=== PATIENT | male | born 1935 | race Caucasian/White ===

== ENCOUNTER 2019-08-05 12:14 | Inpatient (IN) | payer OTHER ==
[~2019-08-05] VITALS: Ht 185.4 cm; Wt 77.1 kg
[2019-08-05 12:15] VITALS: BP 126/65
[2019-08-05 12:43] LABS: HEMATOCRIT 35.5 % (42.0-52.0); HEMOGLOBIN 11.1 gm/dL (14.0-18.0); MCH 28.7 pg (26.0-34.0); MCHC 31.2 g/dL (28.0-37.0); MPV 6.6 fl. (7.2-11.1); NUCLEATED RBCS 0 /100WBC; PLATELET COUNT* 400 thou/uL (150-400); RBC 3.86 mil/uL (4.50-6.00); RDW-CV 16.1 % (10.5-14.5); WBC 25.1 thou/uL (4.0-11.0)
[2019-08-05 12:49] LABS: APTT 24.1 Seconds (25.0-31.3); CALCIUM 7.7 mg/dL (8.5-10.1); CREATININE 1.7 mg/dL (0.6-1.3); INR 1.3; PROTIME 12.8 Seconds (9.20-11.50)
[2019-08-05 12:55] LABS: PCO2 34.6 mmHg (35.0-45.0); pH 7.353 (7.340-7.450)
[2019-08-05 13:00] LABS: ALBUMIN 2.9 g/dL (3.4-5.0); MAGNESIUM 1.8 mg/dL (1.8-2.4); POTASSIUM 4.5 mmol/L (3.5-5.1); TOTAL BILIRUBIN 0.9 mg/dL (<0.1-1.0); TOTAL PROTEIN 7.7 g/dL (6.4-8.2)
[2019-08-05 13:11] LABS: ABSOLUTE MONOCYTES 1.5 thou/uL (0.0-1.2); ABSOLUTE NEUTROPHILS 19.6 thou/uL (1.6-8.1); PLATELET ESTIMATE ADEQUATE
[2019-08-05] MEDS ORDERED: ESBRIET801 MG PO (13:35)
[2019-08-05] MEDS ORDERED: METFORMIN HCL500 M3 PO (13:35)
[2019-08-05] MEDS ORDERED: ALLEGRA ALLERG180 MG PO (13:36)
[2019-08-05] MEDS ORDERED: VENTOLIN HFA INH8 GM INH (13:36)
[2019-08-05] MEDS ORDERED: PRAVACHOL 20 MG20 M1 PO (13:36)
[2019-08-05] MEDS ORDERED: CALTRATE PLUS1 EACH PO (13:37)
[2019-08-05] MEDS ORDERED: ESSENTIAL DAIL1 EACH PO (13:37)
[2019-08-05] MEDS ORDERED: TOPROL XL25 MG PO (13:37)
[2019-08-05] MEDS ORDERED: COZAAR 25 MG TA25 M1 PO (13:37)
[2019-08-05 14:39] VITALS: BP 157/86
[2019-08-05 20:00] VITALS: BP 172/106
[2019-08-06] VITALS: BP 170/110
[2019-08-06 02:10] LABS: HEPATITIS B SURFACE AG Negative (Negative)
[2019-08-06 04:00] VITALS: BP 168/104
[2019-08-06 05:28] LABS: HEMATOCRIT 30.2 % (42.0-52.0); HEMOGLOBIN 9.9 gm/dL (14.0-18.0); MCHC 32.6 g/dL (28.0-37.0); MCV 89.1 fL (80.0-100.0); MPV 6.4 fl. (7.2-11.1); RBC 3.4 mil/uL (4.50-6.00); RDW-CV 15.2 % (10.5-14.5); WBC 19.4 thou/uL (4.0-11.0)
[2019-08-06 05:46] LABS: ALBUMIN 2.6 g/dL (3.4-5.0); CALCIUM 6.9 mg/dL (8.5-10.1); CREATININE 1.3 mg/dL (0.6-1.3); MAGNESIUM 1.8 mg/dL (1.8-2.4); POTASSIUM 4.6 mmol/L (3.5-5.1); TOTAL BILIRUBIN 0.3 mg/dL (<0.1-1.0); TOTAL PROTEIN 6.7 g/dL (6.4-8.2)
--- NOTE | 2019-08-06 07:33 | NUR ---
ASSUMED PATIENT CARE AT 1900. ASSESSMENT COMPLETED CHARTED. PATIENT HAD INCREASED BP DURING THE SHIFT. DOCTOR MANPREET NOTIFIED, NO NEW ORDERS RECEIVED. O2 INCREASED TO 10L HFNC. HOURLY ROUNDING IN PLACE FOR PATIENT SAFETY. CLWR.
--- NOTE | 2019-08-06 11:40 | EKG ---
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: JUDI : 1935 Requested By: Jose E Danielle Order Number: [id number] MD: Dave Campbell Measurements Intervals [place] Rate: 99 P: 81 WV: 152 QRS: -52 QRSD: 98 T: 72 QT: 353 QTc: 453 Interpretive Statements Sinus rhythm Left anterior fascicular block Abnormal R-wave progression, late transition Minimal ST depression, lateral leads Compared to ECG 05/07/2008 07:58:10 no change Electronically Signed On 08-06-2019 11:40:51 WOOL [employer]OWER by Dave Campbell [email or web address] <ELECTRONICALLY SIGNED> By: Dave Campbell MD, FACC 08/06/19 1140 1228 1228 Dave Campbell MD, [facility] /EPI
--- NOTE | 2019-08-06 13:16 | EKG ---
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 : 1935 Requested By: Rodriguez Kwong Order Number: [id number] MD: Dave Campbell Measurements Intervals [place] Rate: 85 P: 15 MA: 155 QRS: -47 QRSD: 101 T: -17 QT: 400 QTc: 476 Interpretive Statements Sinus rhythm Left anterior fascicular block Abnormal R-wave progression, early transition Left ventricular hypertrophy Borderline T abnormalities, inferior leads Borderline prolonged QT interval Compared to ECG 08/05/2019 12:28:40 Left ventricular hypertrophy now present T-wave abnormality now present Electronically Signed On 08-06-2019 13:16:33 SPECIALTY SALES CONSULTANT by Dave Campbell [email or web address] <ELECTRONICALLY SIGNED> By: Dave Campbell MD, FACC 08/06/19 1316 Dave Campbell MD, FACC /EPI
--- NOTE | 2019-08-06 15:20 | NUR ---
Pt was out of the room at [facility] u/s, spoke with REGINA in room. Pt resides at home with his . Uses a cane PRN. Wears home o2 continues, REGINA unsure of what DME company. No hx of HH or SNF. CM to f/u with Pt later
[2019-08-06 17:42] VITALS: BP 178/105
[2019-08-06 20:00] VITALS: BP 166/104
[2019-08-07] VITALS: BP 175/109
[2019-08-07 00:55] LABS: URINE BILIRUBIN NEGATIVE (Negative); URINE BLOOD 1+ (Negative); URINE CLARITY CLEAR; URINE COLOR YELLOW; URINE GLUCOSE-RANDOM 1+ (Negative); URINE KETONES NEGATIVE (Negative); URINE LEUKOCYTES-REFLEX NEGATIVE (Negative); URINE NITRITE-REFLEX NEGATIVE (Negative); URINE PROTEIN 1+ (Negative); URINE SPECIFIC GRAVITY 1.025 (1.005-1.030); URINE UROBILINOGEN 0.2 E.U./dl (0.2-1.0)
[2019-08-07 02:06] LABS: HYALINE CASTS 0-3 Few /LPF (None Seen); SQUAMOUS 0-3 Few /LPF (0-3)
[2019-08-07 02:07] LABS: BACTERIA-REFLEX None Seen /HPF (None Seen); CRYSTALS None Seen /LPF (None Seen); URINE RBC 3-10 Few /HPF (0-2); URINE WBC-REFLEX 0-5 Rare /HPF (0-5)
[2019-08-07 05:02] LABS: HEMATOCRIT 31.4 % (42.0-52.0); HEMOGLOBIN 10.3 gm/dL (14.0-18.0); MCH 29.1 pg (26.0-34.0); MCHC 32.8 g/dL (28.0-37.0); MCV 88.9 fL (80.0-100.0); MPV 6.8 fl. (7.2-11.1); RBC 3.53 mil/uL (4.50-6.00); RDW-CV 15.4 % (10.5-14.5); WBC 27.5 thou/uL (4.0-11.0)
[2019-08-07 05:12] LABS: ALBUMIN 2.7 g/dL (3.4-5.0); CALCIUM 7.8 mg/dL (8.5-10.1); CREATININE 1.4 mg/dL (0.6-1.3); TOTAL BILIRUBIN 0.3 mg/dL (<0.1-1.0); TOTAL PROTEIN 6.9 g/dL (6.4-8.2)
--- NOTE | 2019-08-07 07:45 | NUR ---
ASSUMED PATIENT CARE AT 1900. ASSESSMENT COMPLETED CHARTED. PATIENT IS MED-SURG. HOURLY ROUNDING IN PLACE FOR PATIENT SAFETY. CLWR.
[2019-08-07 08:00] VITALS: BP 181/110
--- NOTE | 2019-08-07 11:34 | NUR ---
CONTINUE TO FOLLOW, MET WITH PT. STATES HE IS NORMALLY ON 4L OF O2 AT HOME THRU [facility]. USES INHALER, DOESN'T HAVE A NEBULIZER. PT HASN'T HAD HH IN PAST. PLANS TO RETURN HOME AT [place]. WILL FOLLOW
[2019-08-07 11:36] LABS: INFLUENZA A ANTIGEN Negative (Negative); INFLUENZA B ANTIGEN Negative (Negative)
[2019-08-07 11:47] VITALS: BP 156/97
--- NOTE | 2019-08-07 12:57 | NUR ---
Nutrition: Pt seen for pressure ulcer screening risk. Pt stated he does not have an ulcer or wound. He is thin. Wt: 153# at admit. He is familiar with CHO controlled diet. H/o DM, HTN. BG 152, alb 2.7, prealb 14.9. Takes MVI. Admitted with resp failure. On solumedrol, MVI. No other nutrition interventions at this time. Discussed hospital menu and CHO choices. Mild risk.
--- NOTE | 2019-08-07 16:42 | NUR ---
NIKITA RESTING IN BED. 11 LITERS PER HIGH FLOW NASAL CANULA. PULMONARY HAS INFORMED RT THAT THE USE OF HIGH FLOW HEATED NASAL CANULA IS ACCEPTABLE IF NEEDED. VSS AND NEW MEDICATION HAAVE BEEN INITIATED TO REDUCE THE INCIDENCE OF HTN. HOURLY ROUNDING COMPLETED FOR PATIENT SAFETY.
[2019-08-07 20:00] VITALS: BP 147/86
[2019-08-08 04:00] VITALS: BP 160/96
[2019-08-08 05:14] LABS: HEMATOCRIT 30.2 % (42.0-52.0); MCH 29.2 pg (26.0-34.0); MCV 88.5 fL (80.0-100.0); MPV 6.5 fl. (7.2-11.1); RBC 3.41 mil/uL (4.50-6.00); WBC 24.1 thou/uL (4.0-11.0)
[2019-08-08 05:28] LABS: CALCIUM 7.9 mg/dL (8.5-10.1); CREATININE 1.2 mg/dL (0.6-1.3); MAGNESIUM 1.9 mg/dL (1.8-2.4); POTASSIUM 4.7 mmol/L (3.5-5.1)
[2019-08-08 07:45] VITALS: BP 159/95
--- NOTE | 2019-08-08 07:49 | CON ---
[address] [address] CONSULTATION Name: JUANJOFAUSTO W Room: [address] IN .R.#: [id number] Admission: 08/05/19 Attend Phys: Rodriguez Kwong MD Discharge: Date of : 39 Report #: [id number] THIS REPORT FOR: //name// CC: Rodriguez Kwong MD [facility] DATE OF SERVICE: 08/06/2019 PULMONARY CONSULTATION REFERRING PHYSICIAN REQUESTING CONSULTATION: Rodriguez Kwong MD. REASON FOR CONSULTATION: 1. Acute on chronic hypoxic respiratory failure. 2. Acute exacerbation of interstitial lung disease. 3. Sepsis/pneumonia. HISTORY OF PRESENT ILLNESS: The patient is an 83-year-old gentleman with past medical history that is positive for an idiopathic pulmonary fibrosis who follows with [facility], Dr. Alex Singleton. He has been maintained on 4 liters of oxygen during 04/04. He was also on Pirfenidone since 2011. The patient reported that he was treated for what appeared to be urinary tract infection with fever and dysuria approximately 2 weeks ago. He was given a course of nitrofurantoin, but he feels worse after taking it for 2 days. He called his pulmonary clinic and he was advised to take ciprofloxacin, which he started, but again feels worse, so he stopped it. The patient reported history of fatigue and dysuria at that time. Dysuria has resolved. However, over the last 3 days, the patient reported that his cough became more productive yellow sputum. The patient reported history of progressive dyspnea. The patient reported also that he had an increased oxygen requirement at home. No documented fevers or chills prior to admission over the last 2 days. In the Emergency Department, the patient was found to have leukocytosis along with lactic acidosis and acute on chronic hypoxic respiratory failure. The patient was admitted and was started on oxygen. He is currently on ____ liters of nasal cannula oxygen. The patient denies any pleuritic chest pain. The patient is lifetime nonsmoker and he has no history of COPD [place] [address] CONSULTATION Name: FAUSTO GEIGER Room: [address] IN [facility]#: [id number] Admission: 08/05/19 Attend Phys: Rodriguez Kwong MD Discharge: Date of : 37 Report #: [id number] He also takes albuterol as needed at home, which he rarely needs it, but over the last 3 days, he required more frequent dosing. The patient reported that he typically gets approximately twice episodes of bronchitis/upper respiratory tract infection per year. These are usually responsive to doxycycline and azithromycin. REVIEW OF SYSTEMS: Positive as described above for dyspnea, productive cough, intermittent wheezing and chest tightness. Remaining ten point review of system was otherwise unremarkable. PAST MEDICAL HISTORY: 1. Positive for elevated pulmonary fibrosis. 2. Chronic hypoxic respiratory failure. 3. Diabetes mellitus. PAST SURGICAL HISTORY: History of arthroplasty. FAMILY HISTORY: Negative for coronary artery disease or lung disorder. SOCIAL HISTORY: The patient is a lifetime nonsmoker. He denies alcohol or illicit drug use. He is retired. PHYSICAL EXAMINATION: The patient had the following: VITAL SIGNS: Temperature 37.1, heart rate 87, respiratory rate 20, blood pressure 168/104, saturation 94% on ____ liters nasal cannula oxygen. GENERAL: Showed an elderly gentleman who is mildly tachypneic. HEENT: Examination showed atraumatic. Neck supple. Pupils are round and reactive to light and accommodation. No JVD, thyromegaly or cervical lymphadenopathy. No carotid bruit. CARDIOVASCULAR: Regular rate and rhythm, normal S1, S2, no murmur. CHEST: Showed tight air entry bilaterally with bibasilar crackles and a few end expiratory rhonchi basally. ABDOMEN: Soft, lax, nontender. Normal bowel sounds. EXTREMITIES: Lower limb examination showed no clubbing, cyanosis or edema. CENTRAL NERVOUS SYSTEM: The patient was conscious, oriented x 3 with no focal neurological deficit. Normal speech. LABORATORY DATA: As follows: CBC showed WBC count of 19.4, hemoglobin of 9.9 and platelets of 286. His ABG on admission showed pH of 7.35, pCO2 of 34.6, pO2 of 78. Bicarbonate of 18.9 on 2 liters nasal cannula oxygen. Sodium was 133, potassium 4.5, chloride of 98.8, bicarbonate 18, anion gap of 24 of 17, BUN of 20, blood, creatinine of 1.7. Lactic acid was 9.3. Alkaline phosphatase was 158 and creatinine kinase was 119. INR was 1.4. Lipase was 96. Albumin was 2.9 and protein was 7.7. BNP was [address]130. [address] [address] CONSULTATION Name: FAUSTO GEIGER Room: [address] IN ..#: [id number] Admission: 08/05/19 Attend Phys: Rodriguez Kwong MD Discharge: Date of : 37 Report #: [id number] Chest x-ray showed significant interval increase in the diffuse interstitial opacities in the mid and right lower lung prominence and mostly in the right side. In acute setting, this may represent interstitial edema or atypical infection. Chronic interstitial disease/fibrosis could give a similar appearance. ASSESSMENT: 1. Acute on chronic hypoxic respiratory failure. 2. Healthcare-associated pneumonia. 3. Severe sepsis. 4. Interstitial lung disease with possible exacerbation. 5. Lactic acidosis. 6. Diabetes mellitus. PLAN: The patient appeared to have acute exacerbation of idiopathic pulmonary fibrosis/healthcare-associated pneumonia. 1. Agree with broad spectrum antibiotic coverage with cefepime and azithromycin. Will send for flu A and flu B virus is screening as well as start the patient on scheduled bronchodilators and add Brovana and budesonide. I will send for sputum culture. 2. IV Solu-Medrol. 3. Status oxygen to keep saturation between 89% and 94%. When I discussed with RN to have low threshold to change him to heated high flow nasal cannula if needed. 4. MRSA screening is pending. We will continue to do pulmonary toileting and we will have the patient transferred to the ICU. I had a detailed discussion with the patient about his code status. He verified with me that he does not want to be intubated, but is okay with chest compressions and shocks. All his questions were answered. Thank you for giving us the opportunity to participate in the management of this patient. <ELECTRONICALLY SIGNED> By: Yolande Ortiz MD 08/08/19 0749 1055 [id number] Jermain Uribe MD /nt
--- NOTE | 2019-08-08 08:03 | NUR ---
ASSUMED PATIENT CARE AT 1900. ASSESSMENT COMPLETED CHARTED. PATIENT IS MED-SURG. HOURLY RONDING IN PLACE FOR PATIENT SAFETY. CLWR.
--- NOTE | 2019-08-08 08:30 | NUR ---
ASSUMED CARE OF PT THIS AM AROUND 714- MS STATUS IN PLACE AND MAINTAINED INDICATED- UPON ASSESSMENT PT NOTED TO BE RESTING IN BED- PT ARROUSEABLE AND A&O X4- CONTINENT OF B/B- SBA WITH TRANSFERS- LCTA/DIMINISHED IN BASES, DYSPNEA NOTED ON EXERTION- VSS, O2 SAT 96% ON 11L VIA HFNC- ABD SOFT/ROUND/NON-TENDER, BS X4 QUADS- LAST BM REPORTED 08/07/19-BS MONITORED ORDERED WITH SSI PRESCRIBED- IV NOTED TO RIGHT FA INTACT AND SL- 1+ BLE EDEMA NOTED, SCD'S IN PLACE INDICATED-PT DENIES ANY C/O PAIN/DISCOMFORT AT THIS TIME- CALL LIGHT AND PERSONAL BELONGINGS WITH IN REACH- HOURLY ROUNDS IN PLACE R/T SAFETY/NEEDS- ALL NEEDS MET AT THIS TIME-WCTM
[2019-08-08] MEDS ORDERED: MUCINEX600 MG PO (08:36)
[2019-08-08] MEDS ORDERED: PREDNISONE 20 M20 MG PO (08:36)
[2019-08-08] MEDS ORDERED: AZITHROMYCIN 2250 MG PO (08:36)
[2019-08-08] MEDS ORDERED: GLUCOTROL5 MG PO (08:36)
[2019-08-08] MEDS ORDERED: CEFDINIR300 MG PO (08:36)
[2019-08-08 09:19] VITALS: BP 159/95
[2019-08-08 12:21] VITALS: BP 178/79
--- NOTE | 2019-08-08 13:39 | NUR ---
CONTINUE TO FOLLOW, PT PLANS TO RETURN HOME AT [place]. HAS HOME O2 AND PORTABLE THRU [facility], USES 4L NORMALLY. IF NEEDS ADD'L O2 AT DC, CONTACT [facility] HERNANDE[facility] [phone] FAX [phone]
[2019-08-08 20:00] VITALS: BP 162/99
[2019-08-09 04:36] LABS: HEMATOCRIT 31.6 % (42.0-52.0); HEMOGLOBIN 10.1 gm/dL (14.0-18.0); MCH 28.6 pg (26.0-34.0); MCHC 32.1 g/dL (28.0-37.0); MCV 89.1 fL (80.0-100.0); MPV 6.6 fl. (7.2-11.1); NUCLEATED RBCS 0 /100WBC; PLATELET COUNT* 301 thou/uL (150-400); RBC 3.55 mil/uL (4.50-6.00); RDW-CV 15.3 % (10.5-14.5)
[2019-08-09 04:43] LABS: ALBUMIN 2.7 g/dL (3.4-5.0); CALCIUM 8.5 mg/dL (8.5-10.1); CREATININE 1.2 mg/dL (0.6-1.3); DIRECT BILIRUBIN 0.2 mg/dL (<0.1-0.3); POTASSIUM 4.8 mmol/L (3.5-5.1); TOTAL BILIRUBIN 0.6 mg/dL (<0.1-1.0); TOTAL PROTEIN 6.5 g/dL (6.4-8.2)
[2019-08-09 05:51] LABS: ABSOLUTE LYMPHOCYTES 2.6 thou/uL (0.8-5.3); ABSOLUTE MONOCYTES 0.7 thou/uL (0.0-1.2); ABSOLUTE NEUTROPHILS 18.7 thou/uL (1.6-8.1); ANISOCYTOSIS 1+; PLATELET ESTIMATE ADEQUATE; TARGET CELLS Occasional
[2019-08-09 05:52] LABS: HYPOCHROMASIA 1+
--- NOTE | 2019-08-09 08:00 | NUR ---
AM ASSESSMENT COMPLETE, DEFER TO COMPUTER CHARTING. ALERT ORIENTED. DENIES PAIN, DIZZINESS OR ANY DISCOMFORT AT THIS TIME. SOA WITH ACTIVITY NOTED IN BED, 02 ON 5L PER NC - HOB ELEVATED, CALL LIGHT WITHIN REACH. WILL MONITOR.
[2019-08-09] MEDS ORDERED: ALBUTEROL2.5 MG/31 INH (09:29)
[2019-08-09] MEDS ORDERED: NEBULIZER MISCELL (09:29)
[2019-08-09 13:13] VITALS: BP 160/99
--- NOTE | 2019-08-09 17:41 | NUR ---
CONTINUES TO BE SOA WITH ACTIVITY IN BED - PATIENT CALLING EARLIER REPORTING FEELING INCREASE SOA WANTING 02 SAT CHECKED - 02 SAT 86% ON 4L PER NC, 02 INCREASED TO 5L 02 90%. DENIES CHEST PAIN OR ANY OTHER DISCOMFORT TO NURSING DURING SHIFT. TOLERATING DIET. RESTING IN BED WITH HOB ELEVATED. CALL LIGHT WITHIN REACH. WILL CONTINUE WITH PLAN OF CARE.
[2019-08-09 20:00] VITALS: BP 163/102
[2019-08-10] VITALS: BP 159/99
[2019-08-10 04:39] LABS: ABSOLUTE EOSINOPHILS 0.1 thou/uL (0.0-0.7); ABSOLUTE LYMPHOCYTES 4.2 thou/uL (0.8-5.3); ABSOLUTE MONOCYTES 1.4 thou/uL (0.0-1.2); ABSOLUTE NEUTROPHILS 14.1 thou/uL (1.6-8.1); BASOPHILS 0.1 %; EOSINOPHILS 0.3 %; HEMATOCRIT 32.1 % (42.0-52.0); HEMOGLOBIN 10.2 gm/dL (14.0-18.0); LYMPHOCYTES 21.3 %; MCH 28.5 pg (26.0-34.0); MCHC 31.9 g/dL (28.0-37.0); MCV 89.5 fL (80.0-100.0); MONOCYTES 7.1 %; MPV 6.4 fl. (7.2-11.1); NUCLEATED RBCS 0 /100WBC; PLATELET COUNT* 307 thou/uL (150-400); POLYS 71.2 %; RBC 3.59 mil/uL (4.50-6.00); RDW-CV 15.4 % (10.5-14.5); WBC 19.8 thou/uL (4.0-11.0)
[2019-08-10 04:57] LABS: ALBUMIN 2.7 g/dL (3.4-5.0); CALCIUM 8.6 mg/dL (8.5-10.1); CREATININE 1.2 mg/dL (0.6-1.3); DIRECT BILIRUBIN 0.2 mg/dL (<0.1-0.3); POTASSIUM 4.1 mmol/L (3.5-5.1); TOTAL BILIRUBIN 0.7 mg/dL (<0.1-1.0); TOTAL PROTEIN 6.1 g/dL (6.4-8.2)
--- NOTE | 2019-08-10 06:43 | NUR ---
PT SLEPT MOST OF SHIFT. ASSESSMENT DOCUMENTED. MEDS GIVEN PER E-MAR. IV PATENT. NO REPORTS OF PAIN. PT STATES CONCERN GOING HOME WHEN NEEDING TO INCREASE HIS OXYGEN WHEN WALKING. WILL CONTINUE WITH PLAN OF CARE.
[2019-08-10 08:00] VITALS: BP 151/83
--- NOTE | 2019-08-10 12:49 | NUR ---
ASSUMED PT CARE AT 0800, AOX4, UP SBA, O2 SAT 90'S 8L NC. PT DENIES PAIN. PT HAD REST AND SAT, REPORTED O2 DROPS WITH ACTIVITY. HOURLY ROUNDING, CALL LIGHT WITHIN REACH. WILL CONTINUE TO MONITOR.
[2019-08-10 16:00] VITALS: BP 147/92
[2019-08-10 20:00] VITALS: BP 154/93
[2019-08-11] VITALS: BP 146/84
--- NOTE | 2019-08-11 03:07 | NUR ---
PT HAS RESTED COMFORTABLY T/O NIGHT. PT REMAINS ON 8L NC HI FLOW. PT PROGRESSING TOWARDS GOALS. NO COMPLAINTS ON HOURLY ROUNDING. MEDS GIVEN PER EMAR. CALL LIGHT IN REACH
[2019-08-11 08:00] VITALS: BP 160/97
[2019-08-11 15:35] VITALS: BP 136/78
[2019-08-11 16:13] VITALS: BP 131/70
--- NOTE | 2019-08-11 19:17 | NUR ---
assumed pt care at 0730, full assesment done as charted. pt a/o x4, on 8l high flow NC, soa with ambulation. bp elevated this am, all other vss, meds given per nov. pt up with sba, productive cough. denies pain. using urinal, bsc.blood sugar ACHS, sliding scale. uses call light approprialty. report given to Julia VIDES
[2019-08-11 20:00] VITALS: BP 134/76
[2019-08-12 04:28] VITALS: BP 160/91
--- NOTE | 2019-08-12 06:34 | NUR ---
PT CARE ASSUMED AT 1930. SAT MAINTAINED IN O2, TITRATED TO 6LHFC, PATIENT TOLERATION IT WELL. SOA WITH EXERTION. DENIES PAIN. ALERT AND ORIENTED X4. CALL LIGHT WITHIN REACH AND BED IN LOW POSITION. HOURLY ROUNDING DONE FOR PT SAFETY.
[2019-08-12 08:00] VITALS: BP 167/96
[2019-08-12] MEDS ORDERED: ESBRIET801 MG PO (14:06)
[2019-08-12] MEDS ORDERED: MEDROLDOSEPACK PO (14:06)
[2019-08-12] MEDS ORDERED: PREDNISONE 20 M20 MG PO (14:17)
[2019-08-12] MEDS ORDERED: CEFDINIR300 MG PO (14:17)
[2019-08-12] MEDS ORDERED: PULMICORT0.25 MG/1 INH (14:17)
[2019-08-12 14:21] LABS: ALBUMIN 2.5 g/dL (3.4-5.0); DIRECT BILIRUBIN 0.2 mg/dL (<0.1-0.3); TOTAL BILIRUBIN 0.5 mg/dL (<0.1-1.0); TOTAL PROTEIN 5.7 g/dL (6.4-8.2)
[2019-08-12 14:38] VITALS: BP 150/91
--- NOTE | 2019-08-12 18:28 | NUR ---
ASSUMED PT CARE AT 0730, FULL ASSESMENT DONE CHARTED. PT A/O X4, UP WITH ASSIST, STEADY, ON 8L 02 THIS AM, WAS ABLE TO WEAN DOWN TO 6L. PT DID ATTEMPT TO AMBULATE IN [place], BEGAN TO DESAT TO THE 70'S EVEN ON 10L. O2 INCREASED TO 15L, PT ASSISTED BACK TO BED. PT TOLERATED 6L WELL AT REST IN THE MID 90'S. SPUTUME PRODUCTION DECREASED TODAY. PT DENIES PAIN. VSS, MEDS GIVEN PER NOV. DISCHARGE ORDERS RECEIVED. EXTENSIVLY REVIEWED DISCHARGE INSTRUCTIONS AND MEDS WITH PT AND HIS SON. BOTH VERBALIZED UNDERSTANDING. [facility] WAS NOTIFIED OF NEBULIZER ORDER AND SCRIPT SENT. [facility] TO DELIVER TONIGHT TO PTS HOME. PT LEFT UNIT WITH BELONGINGS AND HOME O2 WITH SON AT APPROX 1820
--- NOTE | 2019-08-14 14:07 | NUR ---
RECEIVED FAX FROM [facility] WANTING MORE INFO. CALL TO [facility]. STATED THEY NEEDED COPY OF NEB ORDER REFAXED, SENT
== END 2019-08-12 18:20 | disposition home or self-care (01) | DRG 871 ==
LOC: M.ERS 12:14 → M.TBA-ER 13:20 → M.2W 13:20
PROVIDERS: Family Medicine; Internal Medicine Pulmonary Disease; ADMIT Internal Medicine
DX: A41.9 Sepsis, unspecified organism (principal); J96.21 Acute and chronic respiratory failure with hypoxia; J15.6 Pneumonia due to other Gram-negative bacteria; N17.0 Acute kidney failure with tubular necrosis; J44.1 Chronic obstructive pulmonary disease with (acute) exacerbation; J84.9 Interstitial pulmonary disease, unspecified; D68.9 Coagulation defect, unspecified; R04.2 Hemoptysis; J44.0 Chronic obstructive pulmonary disease with (acute) lower respiratory infection; R65.20 Severe sepsis without septic shock; E11.65 Type 2 diabetes mellitus with hyperglycemia; T38.3X5A Adverse effect of insulin and oral hypoglycemic [antidiabetic] drugs, initial encounter; R74.0 Nonspecific elevation of levels of transaminase and lactic acid dehydrogenase [LDH]; I10 Essential (primary) hypertension; J84.112 Idiopathic pulmonary fibrosis; E86.0 Dehydration; Z79.899 Other long term (current) drug therapy; Z88.0 Allergy status to penicillin; Y92.89 Other specified places as the place of occurrence of the external cause